=== PATIENT | female | born 1960 ===

== ENCOUNTER 2024-12-09 12:47 | Inpatient (IN) | payer OTHER ==
[2024-12-09 12:56] LABS: Glucose,Whole Blood 142 mg/dL (70-110)
--- NOTE | 2024-12-09 14:26 | CT ---
EXAMINATION TYPE: CT brain wo con CT DLP: 1157.4 mGycm, Automated exposure control for dose reduction was used. DATE OF EXAM: 12/09/2024 2:13 PM COMPARISON: None. CLINICAL INDICATION:Female, 64 years old with history of Facial droop left arm weakness, Facial droop left arm weakness. Reported prior CVA one month ago. TECHNIQUE: Brain: Multiple axial CT images of the brain were obtained without IV contrast. . Coronal and sagitta l reformats reviewed. FINDINGS: Brain: Extra-axial spaces: No abnormal extra-axial fluid collections. Ventricular system: Within normal limits Cerebral parenchyma: No acute intraparenchymal hemorrhage or mass effect. Right temporal parietal lo be watershed region loss of newby-white differentiation and hypoattenuation. Some regions demonstrate near CSF attenuation. Nonspecific bilateral basal ganglia calcifications. Cerebellum: Unremarkable. Mass effect: No evidence of midline shift. Intracranial vasculature: unremarkable Soft tissues: Normal. Calvarium/osseous structures: No depressed skull fracture. Paranasal sinuses and mastoid air cells: The mastoid air cells are clear. Air-fluid level within the left sphenoid sinus. Remaining paranasal sinuses are clear. Visualized orbits: Orbital contents are intact. IMPRESSION: 1. Right parietal and temporal lobes watershed region with areas of encephalomalacia near CSF attenu ation. Most consistent with chronic infarct. Additional regions demonstrate newby-white differentiatio n loss. Smaller regions of acute/subacute ischemia are not excluded. Consider further evaluation with MRI. 2. Air-fluid level within the left sphenoid sinus. Correlate for acute sinusitis. Findings called to and discussed with Dr. العراقي at 2:22 PM on 12/09/2024. [facility], , 12/09/2024 2:23 PM
--- NOTE | 2024-12-09 14:32 | ED ---
General Adult HPI - General Chief complaint: Neuro Symptoms/Deficit Stated complaint: neuro symptoms Time Seen by Provider: 12/09/24 12:59 Source: patient, RN notes reviewed, old records reviewed Mode of arrival: ambulatory Limitations: no limitations - History of Present Illness Initial comments: 64-year-old female with recent CVA in [place] presenting with persistent symptoms of facial droop, left hand weakness and dizziness. Symptoms have been on and off for the past 30 days after the stroke. Patient returned from [place] yesterday with persistent symptoms and daughters were concerned. Patient is currently on aspirin, Lipitor, metformin. Denies headache. She states that she has an intermittent facial droop on the left and persistent left upper extremity weakness. No chest pain. No abdominal pain. No fever. - Related Data Allergies Allergy/AdvReac Type Severity Reaction Status Date / Time No Known Allergies Allergy Verified 12/09/24 12:58 Review of Systems ROS Statement: Those systems with pertinent positive or pertinent negative responses have been documented in the HPI. ROS Other: All systems not noted in ROS Statement are negative. Past Medical History Past Medical History: CVA/TIA, Diabetes Mellitus, Hyperlipidemia, Hypertension Past Surgical History: No Surgical Hx Reported Smoking Status: Never smoker General Exam Limitations: no limitations General appearance: alert, in no apparent distress Head exam: Present: atraumatic, normocephalic Eye exam: Present: normal appearance, PERRL ENT exam: Present: normal exam Neck exam: Present: normal inspection. Absent: tenderness, meningismus Respiratory exam: Present: normal lung sounds bilaterally. Absent: respiratory distress, wheezes Cardiovascular Exam: Present: regular rate, normal rhythm GI/Abdominal exam: Present: soft. Absent: distended, tenderness, guarding Extremities exam: Present: normal inspection, normal capillary refill Neurological exam: Present: alert, oriented X3, motor sensory deficit (Left facial droop, left hand reduced agriculture specialist strength) Psychiatric exam: Present: normal affect, normal mood Skin exam: Present: warm, dry, intact Course Vital Signs 12/09/24 12:53 Temperature 98.7 F Pulse Rate 70 Respiratory 20 Rate Blood Pressure 143/80 O2 Sat by Pulse 97 Oximetry Medical Decision Making - Medical Decision Making Was pt. sent in by a medical professional or institution (, PA, CLINICAL CYTOPATHOLOGIST, urgent care, hospital, or [facility]...) When possible be specific @ -No Did you speak to anyone other than the patient for history (EMS, parent, family, police, friend...)? What history was obtained from this source @Patient's [id number] who is present during my evaluation. Did you review nursing and triage notes (agree or disagree)? Why? @ -I reviewed and agree with nursing and triage notes Were old charts reviewed (outside hosp., previous admission, EMS record, old EKG, old radiological studies, urgent care reports/EKG's, [facility] records)? Report findings @ -No old charts were reviewed Differential CVA Ischemic stroke, hemorrhagic stroke, brain tumor, atypical migraine, Wernicke's encephalopathy, seizure, multiple sclerosis, meningitis, encephalitis, hypoglyce sade, Guillain-Aceves, electrolytes disturbance, myasthenia gravis.... This is not meant to be an all-inclusive list EKG interpreted by me (3pts min.). @ Sinus rhythm rate of 70 DC interval 146, QRS duration 105, QTc [address] segment elevation X-rays interpreted by .me (1pt min.). @ -None done CT interpreted by me (1pt min.). @ -[CT brain shows possibility of acute on chronic area of infarction. U/S interpreted by me (1pt. min.). @ -None done What testing was considered but not performed or refused? (CT, X-rays, U/S, labs)? Why? @ -None What meds were considered but not given or refused? Why? @ -None Did you discuss the management of the patient with other professionals (professionals i.e. , PA, CLINICAL CYTOPATHOLOGIST, lab, RT, psych nurse, psychosocial rehabilitation counselor, area safety manager, teacher, staff readiness officer, case aide)? Give summary @Dr. Mendoza Was smoking cessation discussed for >3mins.? @ -No Was critical care preformed (if so, how long)? @ -[yes, 35 min Were there social determinants of health that impacted care today? How? (Homelessness, low income, unemployed, alcoholism, drug addiction, transportation, low edu. Level, literacy, decrease access to med. care, retirement, rehab)? @ -No Was there de-escalation of care discussed even if they declined (Discuss DNR or withdrawal of care, Hospice)? DNR status @ -No What co-morbidities impacted this encounter? (DM, HTN, Smoking, COPD, CAD, Cancer, CVA, ARF, Chemo, Hep., AIDS, mental health diagnosis, sleep apnea, morbid obesity)? @Hypertension diabetes, recent CVA. Was patient admitted / discharged? Hospital course, mention meds given and route, prescriptions, significant lab abnormalities, going to OR and other pertinent info. @64-year-old female with waxing and waning symptoms over the past 1 month after her CVA. CT brain does show a area of prior CVA however there is also an area of acute or subacute infarction. Patient will require further evaluation including consult to neurology. She is given full-strength aspirin in the emergency department. Laboratory studies are pending. Admitted to [facility]. Undiagnosed new problem with uncertain prognosis? @ -No Drug Therapy requiring intensive monitoring for toxicity (Heparin, Nitro, Insulin, Cardizem)? @ -No Were any procedures done? @ -No Diagnosis/symptom? @ -CVA Acute, or Chronic, or Acute on Chronic? @ -acute Uncomplicated (without systemic symptoms) or Complicated (systemic symptoms)? @ -Default Side effects of treatment? @ -No Exacerbation, Progression, or Severe Exacerbation? @ -No Poses a threat to life or bodily function? How? (Chest pain, USA, AR, pneumonia, PE, COPD, DKA, ARF, appy, cholecystitis, CVA, Diverticulitis, Homicidal, Suicidal, threat to staff... and all critical care pts) @ -[yes, CVA - Lab Data Result diagrams: 12/09/24 14:39 Lab Results 12/09/24 12/09/24 Range/Units 12:55 14:39 WBC 8.3 (3.8-10.6) k/uL RBC 4.64 (3.80-5.40) m/uL Hgb 14.1 (11.4-16.0) gm/dL Hct 43.4 (34.0-46.0) % MCV 93.4 (80.0-100.0) fL MCH 30.4 (25.0-35.0) pg MCHC 32.6 (31.0-37.0) g/dL RDW 13.7 (11.5-15.5) % Plt Count 277 (150-450) k/uL MPV 7.3 Neutrophils % 55 % Lymphocytes % 34 % Monocytes % 5 % Eosinophils % 3 % Basophils % 1 % Neutrophils # 4.6 (1.3-7.7) k/uL Lymphocytes # 2.8 (1.0-4.8) k/uL Monocytes # 0.4 (0-1.0) k/uL Eosinophils # 0.2 (0-0.7) k/uL Basophils # 0.1 (0-0.2) k/uL POC Glucose (mg/dL) 142 H (70-110) mg/dL POC Glu Security Services Manager DEL English Critical Care Time Critical Care Time: Yes Total Critical Care Time: 35 Disposition Clinical Impression: Cerebrovascular accident (CVA) Disposition: ADMITTED IP TO THIS [facility] Condition: Stable Is patient prescribed a controlled substance at d/c from ED?: No Referrals: Nonstaff,Physician [Primary Care Provider] - 1-2 days Time of Disposition: 14:55
[2024-12-09 14:53] LABS: Basophils # (A) 0.1 k/uL (0-0.2); Basophils % (A) 1 %; Eosinophils # (A) 0.2 k/uL (0-0.7); Eosinophils % (A) 3 %; HCT 43.4 % (34.0-46.0); HGB 14.1 gm/dL (11.4-16.0); Lymphocytes # (A) 2.8 k/uL (1.0-4.8); Lymphocytes % (A) 34 %; MCH 30.4 pg (25.0-35.0); MCHC 32.6 g/dL (31.0-37.0); MCV 93.4 fL (80.0-100.0); Mean Platelet Volume 7.3; Monocytes # (A) 0.4 k/uL (0-1.0); Monocytes % (A) 5 %; Neutrophils # (A) 4.6 k/uL (1.3-7.7); Neutrophils % (A) 55 %; Platelet Count 277 k/uL (150-450); RBC 4.64 m/uL (3.80-5.40); RDW 13.7 % (11.5-15.5); WBC 8.3 k/uL (3.8-10.6)
[2024-12-09 15:11] LABS: ALT 23 U/L (4-34); AST 25 U/L (14-36); African American GFR (CKD) >90 (>60 ml/min/1.73 sqM); Albumin 3.9 g/dL (3.5-5.0); Alkaline Phosphatase 121 U/L (38-126); Anion Gap 11 mmol/L; Blood Urea Nitrogen 17 mg/dL (7-17); Calcium 9.5 mg/dL (8.4-10.2); Carbon Dioxide 22 mmol/L (22-30); Chloride 104 mmol/L (98-107); Creatine Kinase 39 U/L (30-135); Glucose 117 mg/dL (74-99); Non-African American GFR(CKD) >90 (>60 ml/min/1.73 sqM); Potassium 4.1 mmol/L (3.5-5.1); Sodium 137 mmol/L (137-145); Total Bilirubin 1.2 mg/dL (0.2-1.3)
[2024-12-09 15:23] LABS: Partial Thromboplastin Time 24.8 sec (22.0-30.0); Prothrombin Time 10.9 sec (10.0-12.5)
[2024-12-09] MEDS: ATORVASTATIN 40 MG TAB PO STA (15:42)
[2024-12-09] MEDS: ASPIRIN 325 MG TAB PO STA (15:42)
[2024-12-09] MEDS: SODIUM CHLORIDE 0.9% 1,000 ML IV STA (15:43)
[2024-12-09] MEDS ORDERED: DEXTROSE 50% SYRINGE 50 ML IVP PRN ×2 (16:15)
--- NOTE | 2024-12-09 16:32 | P.HPIM ---
History of Present Illness H&P Date: 12/09/24 History of present illness; Very pleasant 64 year old female with PMH of diabetes mellitus, recently diagnosed hypertension and recently diagnosed CVA. At the beginning of October her and her were driving down to [place], which is a 3-day drive, while in [place] prior to crossing border she had a sudden onset of confusion, left- sided weakness and left-sided facial droop. The following day, she was taken to a hospital in [place] where she was diagnosed with having had a stroke. At the time, she was initiated on aspirin 81 mg daily, Lipitor 40 mg daily and she states that she has been compliant with his medications. Since that time, she has been progressing and was continue to feel better, however her notes that there were 4 separate episodes over the past month or so in which he noticed left-sided facial droop lasting approximately 30 minutes each time. Prior to their drive back up to [place] from [place], she had been doing well. However, at the start of their trip he began to notice similar confusion and left-sided weakness that he had noticed before. As a result of this, her and her family felt that it was best that she would commanding be further evaluated. Labratory review: -WBCs 8.3, hemoglobin 14.1, hematocrit 43.4, platelet 277; sodium 137, potassium 4.1, BUN 70, creatinine 0.52, calcium 9.5, total bilirubin 1.2, AST 25, ALT 23, alkaline phosphatase 121 Imaging: -CT head done showed right parietal and temporal lobes watershed region with areas of encephalomalacia near CSF attenuation, most consistent with chronic infarct. Additional regions demonstrate newby-white differentiation loss. There are smaller regions of acute/subacute ischemia are not excluded. -EKG done in the ER showed heart rate of 70, sinus rhythm,, no ST segment elevation or depression seen, no T-wave inversions seen. Vitals: Blood pressure 143/80, heart rate 70, respiratory 20, SpO2 97% room air Patient admitted to internal medicine service REVIEW OF SYSTEMS: Pertinent positives and negatives noted in HPI. The rest of the 14-point review of systems is negative. Physical Exam: General: nontoxic, no distress, appears at stated age Derm: warm, dry, intact Head: atraumatic, normocephalic, symmetric Eyes: EOMI, anicteric sclera Mouth: no lip lesion, mucus membranes moist Cardiovascular: S1 S2 reg, no murmur, rubs, or gallops Lungs: CTA bilateral, no rales, no accessory muscle use Abdominal: soft, non-tender to palpataion, no appreciable organomegaly Extremities: no gross muscle atrophy, no edema, no contractures Neuro: Alert, Oriented, CNII-XII grossly intact, gait normal; very slight left- sided facial droop Psych: well appearing, appropriate affect Assessment and plan Very pleasant 64 year old female with PMH of diabetes mellitus, recently diagnosed hypertension and recently diagnosed CVA. Presents for further eval uation of a possible acute on chronic CVA. #Possible acute on chronic CVA -CT brain read reviewed, showed small regions of acute/subacute ischemia not being excluded -Continue with aspirin 81 mg daily, Lipitor 40 mg daily, Plavix 75 mg daily -Remain on NS 100 cc/h to maintain cerebral hyperperfusion -CT angiography head and neck ordered, currently pending -MRI brain without contrast ordered, currently pending -Echocardiogram ordered, currently pending -Hemoglobin A1c, lipid panel, TSH ordered, currently pending -Continue with neurochecks and cardiac monitoring #Ifh-[id number] type 2 diabetes mellitus -Accu-Cheks -Sliding scale initiated -Hemoglobin A1c pending -Hold metformin -Monitor for hypoglycemia #Hypertension -Hold antihypertensives GI prophylaxis: None DVT prophylaxis: Lovenox 40 mg daily The patient is admitted with an anticipated more than than 2 midnight stay for evaluation of possible acute on chronic CVA. CODE STATUS: Full code Discussed with: Patient Anticipated discharge place: Pending clinical course Dictation was produced using [employer] dictation software. please excuse any grammatical, word or spelling errors. Jose Arroyo MD PGY-1 IM I have seen and evaluated the patient today. Discussed with the resident and agree with the residents finding and plan as documented in the resident's note. Changes highlighted in blue font. Past Medical History Past Medical History: CVA/TIA, Diabetes Mellitus, Hyperlipidemia, Hypertension Past Surgical History: No Surgical Hx Reported Smoking Status: Never smoker Medications and Allergies Home Medications Medication Instructions Recorded Confirmed Type Aspirin EC [Ecotrin Low Dose] 81 mg PO HS 12/09/24 12/09/24 History Atorvastatin [Lipitor] 10 mg PO HS 12/09/24 12/09/24 History Clonazepam 2.5mg/Ml Solution 4 drops PO HS 12/09/24 12/09/24 History Dropper Low Iron 1 tab PO HS 12/09/24 12/09/24 History Telmisartan 40 mg PO HS 12/09/24 12/09/24 History metFORMIN HCL 1,000 mg PO BID 12/09/24 12/09/24 History Allergies Allergy/AdvReac Type Severity Reaction Status Date / Time No Known Allergies Allergy Verified 12/09/24 12:58 Physical Exam Vitals: Vital Signs Temp Pulse Resp BP Pulse Ox 12/09/24 12:53 98.7 F 70 20 143/80 97 Intake and Output 12/09/24 12/09/24 12/09/24 06:59 14:59 22:59 Other: Weight 71.214 kg Results CBC & Chem 7: 12/09/24 14:39 12/09/24 14:39 Labs: Abnormal Lab Results - Last 24 Hours (Table) 12/09/24 Range/Units 12:55 POC Glucose (mg/dL) 142 H (70-110) mg/dL
[2024-12-09 16:42] LABS: Glucose,Whole Blood 147 mg/dL (70-110)
[2024-12-09] MEDS: INSULIN LISPRO (HumaLOG) 100 UNIT/ML 10 mL VL SQ SCH (17:19)
[2024-12-09] MEDS: SODIUM CHLORIDE 0.9% 1,000 ML IV SCH (17:33)
[2024-12-09] MEDS: CLOPIDOGREL 75 MG TAB PO SCH (17:58)
--- NOTE | 2024-12-09 20:17 | CT ---
EXAMINATION TYPE: CT angio head neck DATE OF EXAM: 12/09/2024 8:01 PM COMPARISON: CT same day. CLINICAL INDICATION: Female, 64 years old with history of CVA, Had stroke in oct. brain bleed. now ba ck c/o intermitent facial droop increase loss of left hand function. pt with facial droop. able to sp eak and swallow. no headache. TECHNIQUE: Axially acquired helical CT angiogram of the head and neck was obtained with contrast. Axi al images are supplemented with 3D reconstructions and MIP images which were post-processed at an in dependent workstation. NASCET criteria used. Contrast used:65 mL of Isovue 370 with IV Contrast, Oral contrast used: None. CT DLP: 448.2 mGycm, Automated exposure control for dose reduction was used. FINDINGS: CTA HEAD: No evidence of acute intracranial hemorrhage, mass effect, or midline shift. The ventricles, sulci, a nd cisterns are unremarkable. Encephalomalacia the right parietal temporal region from prior injury. Vertebral arteries: The vertebral arteries are patent. Vertebral artery dominance: Codominant Basilar artery: The basilar artery is intact. The basilar artery bifurcation is normal. Internal Carotid arteries: The cervical, petrous, cavernous and supraclinoid segments are normal. MUNIRA: Patent with no evidence of aneurysm. ACOM: Present without evidence of aneurysm. MCA: Patent with no evidence of aneurysm. LIQUOR COMMISSIONER: Patent with no evidence of aneurysm. PCOM: Hypoplastic bilaterally. Dural sinuses: Patent. CTA NECK: Right Carotid System: The common carotid artery and external carotid artery are patent. The carotid bifurcation demonstrate s no evidence of hemodynamically significant stenosis. The remaining portions of the internal carotid artery demonstrate normal size without significant narrowing. Left Carotid System: The common carotid artery and external carotid artery are patent. The carotid bifurcation demonstrate s no evidence of hemodynamically significant stenosis. The remaining portions of the internal carotid artery demonstrate normal size without significant narrowing. Vertebral arteries are patent without evidence hemodynamically significant stenosis. There is a three-vessel aortic arch. The origins of the great vessels are patent. No evidence of hemo dynamically significant stenosis. IMPRESSION: 1. No evidence of dissection of the cervical internal carotid arteries or vertebral arteries. 2. No any evidence of significant stenosis at the carotid bifurcations. 3. No evidence of intracranial high-grade stenosis or intracranial aneurysm. [facility], , 12/09/2024 8:15 PM
[2024-12-09 22:00] LABS: Glucose,Whole Blood 235 mg/dL (70-110)
[2024-12-10 06:20] LABS: Glucose,Whole Blood 89 mg/dL (70-110)
[2024-12-10] MEDS: ENOXAPARIN 40 MG/0.4 ML SYRINGE SQ SCH (08:14)
[2024-12-10] MEDS: ASPIRIN 81 MG PO SCH (08:14)
[2024-12-10 08:47] LABS: Chol/HDL Ratio 1.82 Ratio; LDL Cholesterol,Calculated 34.1 mg/dL (0.0-131.0); VLDL Calculation 14.44 mg/dL (5.00-40.00)
[2024-12-10] MEDS ORDERED: ASPIRIN 325 MG TAB PO SCH (09:00)
[2024-12-10 11:40] LABS: Glucose,Whole Blood 190 mg/dL (70-110)
--- NOTE | 2024-12-10 14:42 | P.PN ---
Subjective Progress Note Date: 12/10/24 Very pleasant 64 year old female with PMH of diabetes mellitus, recently diagnosed hypertension and recently diagnosed CVA. At the beginning of October her and her were driving down to [place], which is a 3-day drive, while in [place] prior to crossing border she had a sudden onset of confusion, left- sided weakness and left-sided facial droop. The following day, she was taken to a hospital in [place] where she was diagnosed with having had a stroke. At the time, she was initiated on aspirin 81 mg daily, Lipitor 40 mg daily and she states that she has been compliant with his medications. Since that time, she has been progressing and was continue to feel better, however her notes that there were 4 separate episodes over the past month or so in which he noticed left-sided facial droop lasting approximately 30 minutes each time. Prior to their drive back up to [place] from [place], she had been doing well. However, at the start of their trip he began to notice similar confusion and left-sided weakness that he had noticed before. As a result of this, her and her family felt that it was best that she would commanding be further evaluated. 12/10 - She is seen and examined at bedside this morning, remaining in the ED. No acute events overnight, and she has no acute complaints at this time. She underwent CTA head and neck yesterday which showed no evidence of dissection, s ignificant stenosis or intracranial high-grade stenosis or intracranial aneurysm. She is scheduled to undergo echocardiogram as well as an MRI of the brain today. REVIEW OF SYSTEMS: Pertinent positives and negatives noted in HPI. Physical Exam: General: nontoxic, no distress, appears at stated age Derm: warm, dry, intact Head: atraumatic, normocephalic, symmetric Eyes: EOMI, anicteric sclera Mouth: no lip lesion, mucus membranes moist Cardiovascular: S1 S2 reg, no murmur, rubs, or gallops Lungs: CTA bilateral, no rales, no accessory muscle use Abdominal: soft, non-tender to palpataion, no appreciable organomegaly Extremities: no gross muscle atrophy, no edema, no contractures Neuro: Alert, Oriented, CNII-XII grossly intact, gait normal; very slight left- sided facial droop Psych: well appearing, appropriate affect Data Received Today: Labs: Hemoglobin A1c 8.6 Imagining: CTA head/neck showed no evidence of dissection of the cervical internal carotid arteries or vertebral arteries, no evidence of significant stenosis at the carotid bifurcations, no evidence of intracranial high-grade stenosis or intracranial aneurysm. Assessment and plan Very pleasant 64 year old female with PMH of diabetes mellitus, recently diagnosed hypertension and recently diagnosed CVA. Presents for further evaluation of a possible acute on chronic CVA. #Possible acute on chronic CVA -Continue with aspirin 81 mg daily, Lipitor 40 mg daily, Plavix 75 mg daily -Remain on NS 100 cc/h to maintain cerebral hyperperfusion -CT angiography head and neck completed, read and reviewed, showed no evidence of dissection, significant stenosis of the presence of intracranial aneurysm -MRI brain without contrast ordered, currently pending -Echocardiogram ordered, currently pending -Hemoglobin A1c 8.6; encourage close follow-up with primary care physician to ensure tighter glycemic control -Lipid panel showed triglyceride 72.2, cholesterol 108, LDL 34.1, VLDL (calculated) 14.44, HDL 59.50 -TSH was 2.210 -Continue with neurochecks and cardiac monitoring #[id number] type 2 diabetes mellitus -Accu-Cheks -Sliding scale initiated -Hemoglobin A1c pending -Hold metformin -Monitor for hypoglycemia #Hypertension -Hold antihypertensives DVT ppx: Lovenox 40 mg daily Code status: Full code F: NS at 100 cc/h E: Replete as needed N: Heart healthy diet with carbohydrate consistent A: Ambulatory Anticipated discharge place: Home Anticipated discharge time: 24-48 hours Dictation was produced using [employer] dictation software. please excuse any grammatical, word or spelling errors. Jose Arroyo MD PGY-1 IM I have seen and evaluated the patient today. Discussed with the resident and agree with the residents finding and plan as documented in the resident's note. Changes highlighted in blue font. Objective - Vital Signs Vital signs: Vital Signs Temp 97.9 F 12/10/24 04:00 Pulse 68 12/10/24 04:00 Resp 16 12/10/24 04:00 BP 123/77 12/10/24 04:00 Pulse Ox 99 12/10/24 04:00 FiO2 Intake & Output 12/09/24 12/10/24 12/10/24 18:59 06:59 18:59 Weight 71.214 kg Other: # Voids 1 - Labs CBC & Chem 7: 12/09/24 14:39 12/09/24 14:39 Labs: Abnormal Lab Results - Last 24 Hours (Table) 12/09/24 12/09/24 12/09/24 Range/Units 12:55 14:39 14:39 Glucose 117 H (74-99) mg/dL POC Glucose (mg/dL) 142 H (70-110) mg/dL Hemoglobin A1c 8.6 H (<=6.0) % 12/09/24 12/09/24 Range/Units 16:41 21:57 Glucose (74-99) mg/dL POC Glucose (mg/dL) 147 H 235 H (70-110) mg/dL Hemoglobin A1c (<=6.0) %
--- NOTE | 2024-12-10 15:08 | CA ---
Transthoracic Echo Report Name: Kassidy Hyde Age: 64 Gender: F : 1960 Exam Date: 12/10/2024 11:10 Exam Location: [facility] Ht (in): 61 Wt (lb): 157 Ordering Physician: Shant Arroyo MD Attending/Referring Phys: Mechanical Apprentice Fransisca De La Fuente RDCS Procedure CPT: Indications: CVA Cardiac Hx: Technical Quality: Fair Contrast 1: Agitated Saline Total Dose (mL): 10 Contrast 2: Total Dose (mL): MEASUREMENTS (Male / Female) Normal Values 2D ECHO LV Diastolic Diameter PLAX 3.9 cm 4.2 - 5.9 / 3.9 - 5.3 cm LV Systolic Diameter PLAX 2.5 cm IVS Diastolic Thickness 0.9 cm 0.6 - 1.0 / 0.6 - 0.9 cm LVPW Diastolic Thickness 0.8 cm 0.6 - 1.0 / 0.6 - 0.9 cm LV Relative Wall Thickness 0.4 RV Internal Dim ED PLAX 1.6 cm LA Systolic Diameter LX 4.0 cm 3.0 - 4.0 / 2.7 - 3.8 cm LV Diastolic Volume MOD BP 55.0 cm??? 67 - 155 / 56 - 104 cm??? LV Systolic Volume MOD BP 20.1 cm??? 22 - 58 / 19 - 49 cm??? LV Ejection Fraction MOD BP 63.4 % >= 55 % LV Cardiac Index MOD BP 1392.4 cm???/min???m??? LV Diastolic Volume MOD 4C 57.5 cm??? LV Systolic Volume MOD 4C 17.5 cm??? LV Ejection Fraction MOD 4C 69.6 % LV Cardiac Index MOD 4C 1600.6 cm???/min???m??? LV Diastolic Length 4C 6.9 cm LV Systolic Length 4C 5.8 cm LV Diastolic Volume MOD 2C 52.6 cm??? LV Systolic Volume MOD 2C 22.0 cm??? LV Ejection Fraction MOD 2C 58.2 % LV Cardiac Index MOD 2C 1225.2 cm???/min???m??? LV Diastolic Length 2C 6.9 cm LV Systolic Length 2C 6.2 cm M-MODE Aortic Root Diameter MM 2.9 cm LA Systolic Diameter MM 3.4 cm LA Ao Ratio MM 1.2 AV Cusp Separation MM 1.8 cm DOPPLER Mitral E Point Velocity 68.0 cm/s Mitral A Point Velocity 86.4 cm/s Mitral E to A Ratio 0.8 MV Deceleration Time 256.7 ms MV E' Velocity 6.1 cm/s Mitral E to MV E' Ratio 11.2 TR Peak Velocity 226.2 cm/s TR Peak Gradient 20.5 mmHg FINDINGS Left Ventricle Left ventricular ejection fraction is estimated at 55-60 %. Normal left ventricular systolic function with no obvious regional wall motion abnormalities. Left ventricular cavity size normal. Left ventricular wall thickness normal. Right Ventricle Normal right ventricular size and function. Right ventricular systolic pressure within normal limits. Right Atrium Normal right atrial size. Positive agitated saline bubble study for right to left shunt. Left Atrium Mildly increased left atrial diameter. Mitral Valve Structurally normal mitral valve. Mild mitral regurgitation. No mitral stenosis. Aortic Valve Aortic valve not well visualized. No aortic valve stenosis or regurgitation. Tricuspid Valve Structurally normal tricuspid valve. No tricuspid stenosis. Mild tricuspid regurgitation. Pulmonic Valve Structurally normal pulmonic valve. Trace pulmonic regurgitation. No pulmonic stenosis. Pericardium No pericardial or pleural effusion. Aorta Normal size aortic root and proximal ascending aorta. CONCLUSIONS Indication: CVA Normal LV size and function normal LV size and function Likely positive right to left interatrial shunt Normal RV Previewed by: Dr. Chris Webb MD (Electronically Signed) Final Date: 10 December 2024 15:07
--- NOTE | 2024-12-10 15:49 | US ---
EXAMINATION TYPE: US venous doppler duplex LE BI DATE OF EXAM: 12/10/2024 3:13 PM COMPARISON: NONE CLINICAL INDICATION: Female, 64 years old with history of CVA, PFO; Pt does not speak Turkmen, no his tory taken, Pain TECHNIQUE: The lower extremity deep venous system is examined utilizing real time linear array sonog donal with graded compression, color doppler sonography, and spectral doppler. SIDE PERFORMED: Bilateral FINDINGS: VESSELS IMAGED: Common Femoral Vein Deep Femoral Vein Greater Saphenous Vein * Femoral Vein Popliteal Vein Small Saphenous Vein * Proximal Calf Veins (* superficial vessels) Right Leg: No evidence for DVT, Color Doppler imaging shows patency of the vessels. Spectral wavefor ms are within normal limits. Left Leg: No evidence for DVT, Color Doppler imaging shows patency of the vessels. Spectral waveform s are within normal limits. IMPRESSION: No ultrasound evidence for deep venous thrombosis. [facility], , 12/10/2024 3:47 PM
[2024-12-10 17:04] LABS: Glucose,Whole Blood 113 mg/dL (70-110)
[2024-12-10 20:10] LABS: Glucose,Whole Blood 151 mg/dL (70-110)
[2024-12-10] MEDS: ATORVASTATIN 40 MG TAB PO SCH (20:21)
[2024-12-11 05:55] LABS: Glucose,Whole Blood 121 mg/dL (70-110)
[2024-12-11 08:57] VITALS: RESP 16; TEMP 98.1
--- NOTE | 2024-12-11 10:36 | MR ---
EXAMINATION TYPE: MR brain wo con DATE OF EXAM: 12/11/2024 10:13 AM COMPARISON: 12/09/2024. CLINICAL INDICATION: Female, 64 years old with history of CVA; PHH, Facial droop, left arm weakness. TECHNIQUE: Multi planar, multi sequence imaging was performed through the brain including: T1, T2, In version recovery, Diffusion weighted imaging, and gradient echo imaging. No gadolinium was given. FINDINGS: Restricted diffusion is somewhat heterogenous appearance of the right parietal region with limiting artifact throughout the cortex in this region compatible petechial hemorrhage/blood products .e additional area in the anterior right frontal lobe also present. The newby-white junctions, ventric ular system, basal cisterns appear unremarkable. Scattered foci of high T2 signal intensity are see n within the periventricular white matter. Midline structures show no abnormality. The bone marrow signal is within normal limits. Paranasal sinuses and mastoid air cells: No significant paranasal sinus disease. Visualized orbits: Orbital contents are intact. IMPRESSION: 1. Acute/subacute CVA involving the right parietal lobe and area within the cortex of the right fron anthony lobe. Petechial hemorrhage versus pseudolaminar necrosis is present. 2. Nonspecific white matter changes, likely secondary to small vessel ischemic disease. [facility], , 12/11/2024 10:34 AM
[2024-12-11 11:32] LABS: Glucose,Whole Blood 153 mg/dL (70-110)
[2024-12-11 12:28] VITALS: BP 120/83; PULSE 70
--- NOTE | 2024-12-11 14:46 | P.DS ---
Providers Date of admission: 12/09/24 14:51 Expected date of discharge: 12/11/24 Attending physician: Perico Mendoza Primary care physician: Physician Nonstaff Hospital Course: Discharge diagnoses; #Possible acute on chronic CVA #Umu-[id number] type 2 diabetes mellitus #Hypertension Hospital course; Very pleasant 64 year old female with PMH of diabetes mellitus, recently diagnosed hypertension and recently diagnosed CVA. At the beginning of October her and her were driving down to [place], which is a 3-day drive, while in [place] prior to crossing border she had a sudden onset of confusion, left- sided weakness and left-sided facial droop. The following day, she was taken to a hospital in [place] where she was diagnosed with having had a stroke. At the time, she was initiated on aspirin 81 mg daily, Lipitor 40 mg daily and she states that she has been compliant with his medications. Since that time, she has been progressing and was continue to feel better, however her notes that there were 4 separate episodes over the past month or so in which he noticed left-sided facial droop lasting approximately 30 minutes each time. Prior to their drive back up to [place] from [place], she had been doing well. However, at the start of their trip he began to notice similar confusion and left-sided weakness that he had noticed before. Throughout the duration of her stay she displayed minimal symptoms, noting a very slight left-sided facial droop on admission however no weakness or focal deficits were displayed. She underwent a brain CT which showed a right parietal and temporal lobes watershed region with areas of encephalomalacia near CSF attenuation most consistent with a chronic infarct. CT head/neck showed no evidence of dissection of the cervical internal carotid arteries or vertebral arteries, no evidence of significant stenosis at the carotid bifurcations and no evidence of intracranial high-grade stenosis or intracranial aneurysm. She underwent a brain MRI which showed an acute/subacute CVA involving the right parietal lobe and area within the cortex of the right frontal lobe, petechial hemorrhage v pseudo laminar necrosis is present. Additionally, she underwent an echocardiogram which revealed EF 55-60%, with a positive agitated saline bubble study for [id number] shunt. Bilateral duplex venous ultrasound of the lower extremities was negative for any DVT. Discussed the importance of maintaining compliance with medication she is discharged on, aspirin indefinitely, statin, and to complete 21 days of Plavix. Additionally, discussed the importance of following closely with neurology for further evaluation as well as cardiology for further workup of PFO. She is being discharged with an event monitor, with the results being sent to her PCP and [place]. She expressed a verbal understanding of these instructions. She is excited and ready to be discharged today. Physical Exam: General: nontoxic, no distress, appears at stated age Derm: warm, dry, intact Head: atraumatic, normocephalic, symmetric Eyes: EOMI, anicteric sclera Mouth: no lip lesion, mucus membranes moist Cardiovascular: S1 S2 reg, no murmur, rubs, or gallops Lungs: CTA bilateral, no rales, no accessory muscle use Abdominal: soft, non-tender to palpataion, no appreciable organomegaly Extremities: no gross muscle atrophy, no edema, no contractures Neuro: Alert, Oriented, CNII-XII grossly intact, gait normal; very slight left- sided facial droop Psych: well appearing, appropriate affect Dictation was produced using [employer] dictation software. please excuse any grammatical, word or spelling errors. Jose Arroyo MD PGY-1 IM A total of 36 minutes of time were spent preparing this complex discharge summary. Patient was discharged on 11/10/2024 at 1138. I have seen and evaluated the patient today. Discussed with the resident and agree with the residents finding and plan as documented in the resident's note. Changes highlighted in blue font. Patient Condition at Discharge: Stable Plan - Discharge Summary Discharge Rx Participant: Yes New Discharge Prescriptions: New Aspirin 81 mg PO DAILY #90 tab Atorvastatin [Lipitor] 40 mg PO HS #90 tab Clopidogrel [Plavix] 75 mg PO DAILY #19 tab Continue metFORMIN HCL 1,000 mg PO BID Low [place] 1 tab PO HS Clonazepam 2.5mg/Ml Solution Dropper 4 drops PO HS Telmisartan 40 mg PO HS Discontinued Aspirin EC [Ecotrin Low Dose] 81 mg PO HS Atorvastatin [Lipitor] 10 mg PO HS Discharge Medication List Clonazepam 2.5mg/Ml Solution Dropper 4 drops PO HS 12/09/24 [History] Low [place] 1 tab PO HS 12/09/24 [History] Telmisartan 40 mg PO HS 12/09/24 [History] metFORMIN HCL 1,000 mg PO BID 03/31/25 [History] Aspirin 81 mg PO DAILY #90 tab 12/11/24 [Rx] Atorvastatin [Lipitor] 40 mg PO HS #90 tab 12/11/24 [Rx] Clopidogrel [Plavix] 75 mg PO DAILY #19 tab 12/11/24 [Rx] Follow up Appointment(s)/Referral(s): Glendy Newsome MD [REFERRING] - 1 Week (Office will call daughter to set up an appointment after gathering paperwork from [facility]) Shai Huertas MD [STAFF PHYSICIAN] - 1 Week (Office will call patient to schedule an appointment) RuthannPhysician [Primary Care Provider] - 1 Week Patient Instructions/Handouts: Ischemic Stroke (GEN), Patent Foramen Ovale (GEN) Activity/Diet/Wound Care/Special Instructions: Be sure to continue current medications as prescribed including aspirin, Plavix and Lipitor. Please be sure to follow-up with cardiology upon discharge within 1 to 2 weeks for further evaluation of the PFO found on echocardiogram with bubble study. Please be sure to follow-up with neurology upon discharge within 1 to 2 weeks for further evaluation of CVA. Please ensure follow-up with primary care physician within 1 week of discharge. Please follow up with a speech therapist on an outpatient basis Discharge Disposition: HOME SELF-CARE
[2024-12-11] MEDS ORDERED: LOSARTAN 50 MG TAB PO SCH (21:00)
== END 2024-12-11 15:05 | disposition home or self-care (01) | DRG 66 ==
LOC: EC 12:47 → 3SCARD 14:51
PROVIDERS: ADMIT Student in an Organized Health Care Education/Training Program; ATTEND Student in an Organized Health Care Education/Training Program
DX: I63.9 Cerebral infarction, unspecified (principal); G93.89 Other specified disorders of brain; E11.9 Type 2 diabetes mellitus without complications; G83.24 Monoplegia of upper limb affecting left nondominant side; I10 Essential (primary) hypertension; E78.5 Hyperlipidemia, unspecified; R29.810 Facial weakness; Z86.73 Personal history of transient ischemic attack (TIA), and cerebral infarction without residual deficits; Z79.899 Other long term (current) drug therapy; Z79.84 Long term (current) use of oral hypoglycemic drugs; Z79.82 Long term (current) use of aspirin; Z79.02 Long term (current) use of antithrombotics/antiplatelets
CPT/HCPCS: 36415; 70450; 70496; 70498; 70551; 80053; 80061; 82550; 83036; 84443; 85025; 85610; 85730; 93005; 93270; 93306; 93970; 96360; 96361; 99291